=== PATIENT | male | born 1950 | race Caucasian/White ===

== ENCOUNTER 2016-08-28 14:25 | Emergency (ER) | payer MEDICARE, MEDICAID ==
--- NOTE | 2016-08-28 14:59 | EDM.PDOC ---
ED HPI GENERAL MEDICAL PROBLEM - General Chief Complaint: Neuro Symptoms/Deficits Stated Complaint: POSSIBLE CVA Time Seen by Provider: 08/28/16 14:50 Source of Information: Reports: Patient History Limitations: Reports: No limitations - History of Present Illness INITIAL COMMENTS - FREE TEXT/NARRATIVE: Pt is a 66 year old male with PAD, with recent CVA in Jul 2016. Who was discharge from [facility]. His son when he came home today afternoon heard some sound in the bedroom and when he went to see what was going on noticed patient in his bed and could not move the left side of the body and had drooping of the right side of the face. Pt is awake, but not in any distress. Ambulance was called and he was brought in to the emergency room. In the emergency room, pt is alert, he has complete aphasia. he dose respond to verbal commands.Cannot move the left side of the body. Vital are stable. Pt is having chyne-stroke breathing pattern. He was started on oxygen by NC at 10 litres a minute. Pt was last noted to be well was 10am in the morning. Onset: today - Related Data Allergies Allergy/AdvReac Type Severity Reaction Status Date / Time No Known Allergies Allergy Verified 11/20/14 01:07 Home Meds: Home Meds *Calcium Carbonate/Vitamin D 600 tab PO DAILY 02/11/13 [History] Acetaminophen/oxyCODONE [Percocet 325-5 MG] 1 tab PO Q4H PRN 02/11/13 [History] Allopurinol [Allopurinol] 100 mg PO DAILY 02/11/13 [History] Aspirin [Children's Aspirin] 81 mg PO DAILY 02/11/13 [History] Insulin Aspart [NovoLOG] 0 unit SQ TIDMEALS 02/11/13 [History] Insulin Glargine,Hum.Rec.Anlog [Lantus Solostar] 10 units SQ ASDIRECTED [History] Metoprolol Tartrate 50 mg PO BID 02/11/13 [History] Multivitamin with Minerals [Multiple Vitamin] 1 tab PO DAILY 02/11/13 [History] Mycophenolate [Myfortic] 360 mg PO BID 02/11/13 [History] Tacrolimus [Prograf] 0.5 mg PO ASDIRECTED 02/11/13 [History] atorvaSTATin [Lipitor] 20 mg PO BEDTIME 02/11/13 [History] predniSONE [Prednisone] 5 mg PO ASDIRECTED 02/11/13 [History] Past Medical History Other Genitourinary History: kidney transplant Endocrine/Metabolic History: Reports: Diabetes, type II - Past Surgical History Other Musculoskeletal Surgeries/Procedures:: bilat BKA Social & Family History - Family History Family Medical History: Noncontributory - Tobacco Use Smoking Status *Q: Never Smoker Second Hand Smoke Exposure: No - Caffeine Use Caffeine Use: Reports: None - Alcohol Use Days Per Week of Alcohol Use: 1 Number of Drinks Per Day: 7 Total Drinks Per Week: 7 - Recreational Drug Use Recreational Drug Use: No ED ROS GENERAL - Review of Systems Review Of Systems: See Below Constitutional: Denies: fever, chills, fatigue, night sweats, diaphoresis HEENT: Denies: Rhinitis, Sinus problem, Throat pain, Throat swelling Respiratory: Denies: Shortness of Breath, Cough, Sputum Cardiovascular: Denies: Chest pain, Lightheadedness Endocrine: Denies: high glucose GI/Abdominal: Denies: Abdominal pain, Nausea, Vomiting : Denies: discharge, dysuria Musculoskeletal: Denies: shoulder pain, arm pain Skin: Denies: pruritis, rash Neurological: Reports: Pre-Existing Deficit, Trouble Speaking, Difficulty Walking, Weakness. Denies: Confusion, Headache, Numbness, Tingling, Change in Speech ED EXAM, GENERAL - Physical Exam Exam: See Below Exam Limited By: Physical impairment General Appearance: alert, no apparent distress Eye Exam: bilateral eye: EOMI, normal inspection Ears: normal external exam, normal canal, hearing grossly normal Ear Exam: bilateral ear: TM normal Nose: normal inspection, normal mucosa, no blood Throat/Mouth: Normal inspection Head: atraumatic, normocephalic, other (right sided facial paralysis) Neck: normal inspection, supple, non-tender, full range of motion Respiratory/Chest: normal breath sounds, accessory muscle use, other (typical chyne-stroke breathing) Cardiovascular: normal peripheral pulses, no edema, no gallop, no JVD, no murmur , no rub, irregularly irregular Peripheral Pulses: 2+: radial (L), radial (R) GI/Abdominal: normal bowel sounds, soft, non tender, no organomegaly, no distention, no abnormal bruit, no mass Extremities: normal inspection, normal range of motion, non-tender, no pedal edema, normal capillary refill, other Neurological: inattentive, confused, disoriented, other (left sided uri hemiplegia) Skin Exam: Warm, Intact Course - Vital Signs Text/Narrative:: Pt presented with left hemiplegia with right facial paralysis. He did have CT of the head done [facility] which did show large right sided hemorrhagic stroke 4.2cm by 3.6cm with edema. Pt was starting to get into respiratory distress with chynestroke breathing. At which point he was intubated per his wishes from the CPR directive.Post intubation xray shows tube in place I did discuss with neurosurgeon At [facility], who recommended to contact [facility].I did contact the neurosurgeon at [facility]. Discuss patient's clinical finding and the Ct results. His recommendation was to give 50gm on mannitol IV and get the patient to [place]. Air crew already here. he did get OG tube placed and pt transferred to [facility] under care of . Pt's CBC and CMP are stable compared to his previous labs. His .7 was INR ws 3.2 and mildly elevated PTT of 40.6. pt was on brillanta and aspirin since his last stroke. Further care of as per Dr. Quiros. - Orders/Labs/Meds Orders: Active Orders 24 hr Category Date Time Status EKG Documentation Completion [RC] ASDIRECTED Care 08/28/16 14:51 Active Head w Cont [CT] Stat Exams 08/28/16 14:51 Taken CBC WITH AUTO DIFF [HEME] Stat Lab 08/28/16 14:51 Ordered COMPREHENSIVE METABOLIC PN,CMP [CHEM] Stat Lab 08/28/16 14:51 Ordered INR,PT,PROTHROMBIN TIME [COAG] Stat Lab 08/28/16 14:51 Ordered PTT,PARTIAL THROMBOPLSTIN TIME [COAG] Stat Lab 08/28/16 14:51 Ordered Labs: Laboratory Tests 08/28/16 Range/Units 14:50 POC Glucose 218 H (74-110) mg/dL Departure - Departure Time of Disposition: 15:55 Disposition: DC/Tfer to Acute Hospital 02 Condition: fair Clinical Impression: Acute intracranial hemorrhage, Left hemiplegia Clinical Impression: (Ruled Out): Acute cerebellar hemorrhage Forms: ED Department Discharge - Problem List & Annotations (1) Acute intracranial hemorrhage SNOMED Code(s): 4513112 Code(s): I62.9 - NONTRAUMATIC INTRACRANIAL HEMORRHAGE, UNSPECIFIED Status: Acute (2) Left hemiplegia SNOMED Code(s): 739873045 Code(s): G81.94 - HEMIPLEGIA, UNSPECIFIED AFFECTING LEFT NONDOMINANT SIDE Status: Acute - Problem List Review Problem List Initiated/Reviewed/Updated: Yes - My Orders Last 24 Hours: My Active Orders 08/28/16 14:51 EKG Documentation Completion [RC] ASDIRECTED Head w Cont [CT] Stat CBC WITH AUTO DIFF [HEME] Stat COMPREHENSIVE METABOLIC PN,CMP [CHEM] Stat INR,PT,PROTHROMBIN TIME [COAG] Stat PTT,PARTIAL THROMBOPLSTIN TIME [COAG] Stat - Assessment/Plan Last 24 Hours: My Active Orders 08/28/16 14:51 EKG Documentation Completion [RC] ASDIRECTED Head w Cont [CT] Stat CBC WITH AUTO DIFF [HEME] Stat COMPREHENSIVE METABOLIC PN,CMP [CHEM] Stat INR,PT,PROTHROMBIN TIME [COAG] Stat PTT,PARTIAL THROMBOPLSTIN TIME [COAG] Stat Assessment:: Acute right sided hemorrhagic stroke with left sided hemiplegia Plan: Pt presented with left hemiplegia with right facial paralysis. He did have CT of the head done [facility] which did show large right sided hemorrhagic stroke 4.2cm by 3.6cm with edema. Pt was starting to get into respiratory distress with chynestroke breathing. At which point he was intubated per his wishes from the CPR directive.Post intubation xray shows tube in place I did discuss with neurosurgeon At [facility], who recommended to contact [facility].I did contact the neurosurgeon at [facility]. Discuss patient's clinical finding and the Ct results. His recommendation was to give 50gm on mannitol IV and get the patient to [place]. Air crew already here. he did get OG tube placed and pt transferred to [facility] under care of . Pt's CBC and CMP are stable compared to his previous labs. His [id number] was INR ws 3.2 and mildly elevated PTT of 40.6. pt was on brillanta and aspirin since his last stroke. Further care of as per Dr. Quiros.
--- NOTE | 2016-08-29 21:57 | CR ---
DATE OF SERVICE: 08/28/2016 CLINICAL DATA: Acute left hemiplegia. UNENHANCED BRAIN CT Multislice acquisition through the brain without IV contrast was performed. Comparison is made to a prior exam dated 08/02/2016. Motion artifact does degrade image quality. There is a large area of hyperdensity within the right lopez radiata region and right basal ganglia consistent with acute hemorrhage. There is a moderate amount of surrounding edema. It does produce mild mass effect on adjacent structures. It was not present on the prior exam. No other interval changes. IMPRESSION: Acute hemorrhage on right as discussed above. A hypertensive bleed or hemorrhagic infarct is suspected. Minimal mass effect. The patient's healthcare provider was notified of the findings by telephone and by virtual radiologic preliminary radiology report. [id number] [facility]
--- NOTE | 2016-08-30 07:07 | CR ---
DATE OF SERVICE: 08/28/2016 CLINICAL DATA: Intubation. PORTABLE CHEST A single view was performed. The right lateral chest is cut off. There is an endotracheal tube in place with its distal tip 4 cm above the tita. The heart is enlarged. There is pulmonary vascular congestion and bilateral pulmonary edema. There is increased density in the left lung base consistent with basilar atelectasis or infiltrate. Pneumonia should be considered. I do not see any other significant findings. [id number] [facility]
== END 2016-08-28 15:55 ==
LOC: LB.ED 14:25
DX: I62.9 Nontraumatic intracranial hemorrhage, unspecified (principal); G81.94 Hemiplegia, unspecified affecting left nondominant side; E11.9 Type 2 diabetes mellitus without complications; Z79.82 Long term (current) use of aspirin; Z79.4 Long term (current) use of insulin
CPT/HCPCS: 36415; 70460; 71010; 80053; 82962; 85025; 85610; 85730; 93005; 99285; 99285-25; A0425; A0429